=== PATIENT | female | born 1995 | race Caucasian/White ===

== ENCOUNTER 2021-12-26 16:03 | Emergency (ER) | payer OTHER, SELFPAY ==
[~2021-12-26] VITALS: Ht 160 cm; Wt 67.3 kg
[2021-12-26 16:49] LABS: HEMATOCRIT 40.1 % (36.0-47.0); HEMOGLOBIN 13.9 g/dl (12.0-15.5); MEAN CORPUSCULAR HEMOGLOBIN 28.1 pg (27.0-33.0); MEAN CORPUSCULAR HGB CONC 34.7 g/dl (32.0-36.5); PLATELET COUNT, AUTOMATED 393 10^3/uL (150-450); RED BLOOD COUNT 4.95 10^6/uL (4.00-5.40); WHITE BLOOD COUNT 9.1 10^3/uL (4.0-10.0)
[2021-12-26 17:20] LABS: RSV AMPLIFICATION NEGATIVE (NEGATIVE)
[2021-12-26 17:27] LABS: HCG, SERUM QUALITATIVE NEGATIVE (NEGATIVE)
[2021-12-26 17:44] LABS: ACETAMINOPHEN LEVEL < 2.0 UG/ML (10.0-30.0); ALT/SGPT 24 U/L (12-78); BILIRUBIN,DIRECT 0.1 MG/DL (0.0-0.2); BILIRUBIN,TOTAL 0.3 MG/DL (0.2-1.0); BLOOD UREA NITROGEN 4 MG/DL (7-18); CALCIUM LEVEL 9.7 MG/DL (8.5-10.1); CARBON DIOXIDE LEVEL 26 MEQ/L (21-32); CHLORIDE LEVEL 107 MEQ/L (98-107); CREATININE FOR GFR 0.86 MG/DL (0.55-1.30); ETHYL ALCOHOL (ETHANOL) < 0.003 % (0.000-0.010); GLOMERULAR FILTRATION RATE > 60.0 (>60); GLUCOSE, FASTING 97 MG/DL (70-100); POTASSIUM SERUM 4.3 MEQ/L (3.5-5.1); SALICYLATE LEVEL < 1.7 MG/DL (5.0-30.0); SODIUM LEVEL 138 MEQ/L (136-145); TOTAL PROTEIN 7.4 GM/DL (6.4-8.2)
[2021-12-26 20:59] VITALS: BP 119/83
== END 2021-12-26 21:00 | disposition home or self-care (01) ==
LOC: M ED 16:03
DX: F43.0 Acute stress reaction (principal); F32.A Depression, unspecified; F41.9 Anxiety disorder, unspecified; F20.9 Schizophrenia, unspecified; Z88.2 Allergy status to sulfonamides

== ENCOUNTER 2022-05-01 12:54 | Emergency (ER) | payer OTHER, SELFPAY ==
[2022-05-01] MEDS ORDERED: AMPH1CAP5 (13:09)
[2022-05-01] MEDS ORDERED: AMPH1CAP16 PO ×2 (13:31→14:23)
[2022-05-01 13:32] VITALS: BP 125/57
[2022-05-01 14:22] LABS: HEMOGLOBIN 13.3 g/dl (12.0-15.5); MEAN CORPUSCULAR HEMOGLOBIN 28.4 pg (27.0-33.0); MEAN CORPUSCULAR VOLUME 81.2 fl (80.0-96.0); PLATELET COUNT, AUTOMATED 427 10^3/uL (150-450); RED BLOOD COUNT 4.68 10^6/uL (4.00-5.40); WHITE BLOOD COUNT 11.8 10^3/uL (4.0-10.0)
[2022-05-01] MEDS ORDERED: ATOM100C6 PO (14:23)
[2022-05-01] MEDS ORDERED: BUPR15TA PO ×2 (14:23→18:51)
[2022-05-01] MEDS ORDERED: ARIP10TA32 PO (14:23)
[2022-05-01] MEDS ORDERED: D 50CAP2 PO (14:23)
[2022-05-01] MEDS ORDERED: HOME MED LIST COMPLETE! XX SCH (14:30)
[2022-05-01 14:47] LABS: ETHYL ALCOHOL (ETHANOL) < 0.003 % (0.000-0.010)
[2022-05-01 14:48] LABS: ACETAMINOPHEN LEVEL < 2.0 UG/ML (10.0-20.0); SALICYLATE LEVEL < 3.0 MG/DL (<30)
[2022-05-01 14:53] LABS: ALBUMIN 4.2 G/DL (3.2-5.2); ALKALINE PHOSPHATASE 56 U/L (46-116); ALT/SGPT 16 U/L (7.0-40); AST/SGOT 25 U/L (<34); BILIRUBIN,DIRECT 0.2 MG/DL (<0.4); BILIRUBIN,TOTAL 0.6 MG/DL (0.3-1.2); BLOOD UREA NITROGEN 13 MG/DL (9-23); CALCIUM LEVEL 9.1 MG/DL (8.5-10.1); CARBON DIOXIDE LEVEL 23 MMOL/L (20-31); CHLORIDE LEVEL 108 MMOL/L (98-107); CREATININE FOR GFR 0.87 MG/DL (0.55-1.30); GLOMERULAR FILTRATION RATE > 60.0 (>60); GLUCOSE, FASTING 88 MG/DL (60-100); HCG, SERUM QUALITATIVE NEGATIVE (NEGATIVE); SODIUM LEVEL 139 MMOL/L (136-145); THYROID STIMULATING HORMONE 1.049 uIU/ML (0.55-4.78); TOTAL PROTEIN 7.1 G/DL (5.7-8.2)
[2022-05-01 17:45] LABS: BARBITURATES URINE NEGATIVE (NEGATIVE); COCAINE METABOLITE URINE NEGATIVE (NEGATIVE)
[2022-05-01 17:46] LABS: BENZODIAZEPINES URINE NEGATIVE (NEGATIVE); METHADONE URINE NEGATIVE (NEGATIVE); OPIATES URINE NEGATIVE (NEGATIVE); PHENCYCLIDINE URINE NEGATIVE (NEGATIVE)
[2022-05-01 18:01] LABS: AMPHETAMINES LEVEL URINE POSITIVE (NEGATIVE); CANNABINOIDS URINE POSITIVE (NEGATIVE)
[2022-05-01] MEDS ORDERED: ARIP1TAB PO (18:50)
== END 2022-05-01 19:33 | disposition home or self-care (01) ==
LOC: M ED 12:54
DX: F32.9 Major depressive disorder, single episode, unspecified (principal); Z91.51 Personal history of suicidal behavior; Z88.2 Allergy status to sulfonamides

== ENCOUNTER 2023-01-26 01:24 | Emergency (ER) | payer OTHER, SELFPAY ==
[~2023-01-26] VITALS: Ht 170.2 cm; Wt 81.8 kg
[2023-01-26 01:24] VITALS: TEMP 96.8
[~2023-01-26 01:24] MED LIST: AMPH1CAP16 PO; AMPH1CAP5; ARIP10TA32 PO; ARIP1TAB PO; ATOM100C6 PO; BUPR15TA PO; D 50CAP2 PO
[2023-01-26 02:32] LABS: HCG, SERUM QUALITATIVE NEGATIVE (NEGATIVE)
[2023-01-26 02:38] LABS: ETHYL ALCOHOL (ETHANOL) 0.006 % (0.000-0.010); LIPASE 28 U/L (12-53)
[2023-01-26 02:40] LABS: ALBUMIN 4.1 G/DL (3.2-5.2); ALKALINE PHOSPHATASE 52 U/L (46-116); ALT/SGPT 11 U/L (7.0-40); AST/SGOT 16 U/L (<34); BILIRUBIN,DIRECT 0.2 MG/DL (<0.4); BILIRUBIN,TOTAL 0.6 MG/DL (0.3-1.2); BLOOD UREA NITROGEN 12 MG/DL (9-23); CALCIUM LEVEL 9.2 MG/DL (8.5-10.1); CARBON DIOXIDE LEVEL 23 MMOL/L (20-31); CHLORIDE LEVEL 104 MMOL/L (98-107); CREATININE FOR GFR 0.87 MG/DL (0.55-1.30); GLOMERULAR FILTRATION RATE > 60.0 (>60); GLUCOSE, FASTING 101 MG/DL (60-100); POTASSIUM SERUM 3.8 MMOL/L (3.5-5.1); SODIUM LEVEL 137 MMOL/L (136-145); TOTAL PROTEIN 7.1 G/DL (5.7-8.2)
[2023-01-26 02:47] LABS: BASO % 0.5 % (0.0-1.0); EOS # 0.1 10^3/uL (0.0-0.5); EOS % 1.1 % (0.0-3.0); HEMATOCRIT 39.2 % (36.0-47.0); HEMOGLOBIN 13.8 g/dl (12.0-15.5); LYMPH # 2.2 10^3/uL (1.5-5.0); MEAN CORPUSCULAR HEMOGLOBIN 27.9 pg (27.0-33.0); MEAN CORPUSCULAR HGB CONC 35.2 g/dl (32.0-36.5); MEAN CORPUSCULAR VOLUME 79.4 fl (80.0-96.0); MONO # 0.7 10^3/uL (0.0-0.8); MONO % 7.9 % (2.0-8.0); NEUTROPHILS # 5.7 10^3/uL (1.5-8.5); NEUTROPHILS % 65.2 % (36.0-66.0); PLATELET COUNT, AUTOMATED 359 10^3/uL (150-450); RED BLOOD COUNT 4.94 10^6/uL (4.00-5.40); WHITE BLOOD COUNT 8.7 10^3/uL (4.0-10.0)
[2023-01-26] MEDS ORDERED: ISOVUE-370 76% 100ML VIAL As Ordered ONE (03:14)
[2023-01-26 03:45] VITALS: BP 106/60; O2SAT 98
== END 2023-01-26 04:45 | disposition left against medical advice (07) ==
LOC: M ED 01:24
DX: R10.9 Unspecified abdominal pain (principal); Z88.2 Allergy status to sulfonamides; I45.10 Unspecified right bundle-branch block; Z79.899 Other long term (current) drug therapy
CPT/HCPCS: 36415; 74177; 80048; 80076; 82077; 83605; 83690; 84703; 85025; 87486; 87581; 87633; 87798; 93005; 93041; 99284; Q9967